=== PATIENT | male | born 1995 | race Caucasian/White ===

== ENCOUNTER 2022-11-18 03:46 | Emergency (ER) | payer SELFPAY ==
[2022-11-18] MEDS ORDERED: ONDANSETRON 4 MG/2 ML VIAL IVP STA (04:20)
[2022-11-18] MEDS ORDERED: fentaNYL 100 MCG/2 ML VIAL IVP PRN (04:20)
[2022-11-18] MEDS ORDERED: SODIUM CHLORIDE 0.9% 1,000 ML IV STA (04:20)
[2022-11-18 04:30] LABS: BASOPHILS # (AUTO) 0.1 10^3/uL (0.0-0.1); BASOPHILS % (AUTO) 0.8 %; EOSINOPHILS # (AUTO) 0.3 10^3/uL (0.0-0.7); HCT - HEMATOCRIT 46.9 % (42.0-52.0); HGB - HEMOGLOBIN 15.5 g/dL (14.0-18.0); LYMPHOCYTES # (AUTO) 4.1 10^3/uL (1.5-3.5); MEAN CORPUSCULAR VOLUME 87.7 fL (80.0-94.0); MEAN PLATELET VOLUME 9.7 fL (7.4-11.4); MONOCYTES # (AUTO) 0.9 10^3/uL (0.0-1.0); MONOCYTES % (AUTO) 7.1 %; NEUTROPHILS % (AUTO) 56.7 %; PLT - PLATELET COUNT 334 10^3/uL (130-450); RED BLOOD COUNT 5.35 10^6/uL (4.70-6.10); WHITE BLOOD COUNT 12.3 x10^3/uL (4.8-10.8)
[2022-11-18 04:42] LABS: ALBUMIN 4.8 g/dL (3.2-5.5); ALBUMIN/GLOBULIN RATIO 1.7 (1.0-2.2); BILIRUBIN,TOTAL 0.5 mg/dL (0.2-1.0); CALCIUM 9.1 mg/dL (8.5-10.3); CREATININE 0.8 mg/dL (0.6-1.2); POTASSIUM 3.8 mmol/L (3.5-5.0); TOTAL PROTEIN 7.7 g/dL (6.7-8.2)
--- NOTE | 2022-11-18 04:46 | ED Physician Documentation ---
History of Present Illness - Stated complaint Stated Complaint: ABD/BACK PX - Chief complaint Chief Complaint: Neuro - Additonal information Additional information: Patient is 26-year-old transgender female (biologic sex male) presenting to the emergency department with right and left flank pain. Symptoms began acutely earlier this evening. Associated with 1 episode nonbloody nonbilious vomiting. Patient also reports multiple partial complex seizures. Reports a history of seizure disorder. Does not currently take medications. Reports was on Lamictal and multiple other medications but they were inefficient.[facility] manages symptoms with marijuana. [facility] does not currently have primary care or a local area neurologist reporting that they recently moved to our state from [place]. Denies fever, chills, chest pain, diarrhea or constipation. Review of Systems Constitutional: denies: Fever Eyes: denies: Loss of vision Ears: denies: Loss of hearing Nose: denies: Rhinorrhea / runny nose Throat: denies: Dental pain / toothache Cardiac: denies: Chest pain / pressure Respiratory: denies: Dyspnea GI: reports: Abdominal Pain, Nausea, Vomiting. denies: Constipation, Diarrhea : denies: Dysuria Skin: denies: Rash Musculoskeletal: denies: Neck pain Neurologic: reports: Seizure PD PAST MEDICAL HISTORY - Past Medical History Past Medical History: Yes Neuro: Seizure disorder Other Past Medical History: Long time hx of Partial Complex SZ; Smokes medical marijuana - Past Surgical History Past Surgical History: Yes General: Appendectomy, Hiatal hernia repair HEENT: Tonsil/Adenoidectomy - Present Medications Home Medications: Ambulatory Orders Medication Instructions Recorded Confirmed No Known Home Medications 11/18/22 11/18/22 - Allergies Allergies/Adverse Reactions: Allergies Allergy/AdvReac Type Severity Reaction Status Date / Time acetaminophen [From Lortab] Allergy Respiratory Verified 11/18/22 04:08 cephapirin [From Cefadyl] Allergy Respiratory Verified 11/18/22 04:10 hydrocodone [From Lortab] Allergy Respiratory Verified 11/18/22 04:08 iodine Allergy Unknown Verified 11/18/22 04:11 Penicillins Allergy Anaphylaxis Verified 11/18/22 04:09 - Social History Does the pt smoke?: Yes Smoking Status: Current every day smoker Does the pt drink ETOH?: Yes ETOH Use: Liquor Does the pt have substance abuse?: No - Immunizations Immunizations are current?: Yes - POLST Patient has POLST: No PD ED PE NORMAL - Vitals Vital signs reviewed: Yes (Within normal limits) - General General: Alert and oriented X 3, Well developed/nourished, Other (Patient appears uncomfortable) - HEENT HEENT: Atraumatic, PERRL, EOMI, Ears normal, Moist mucous membranes, Pharynx benign, Dentition benign - Neck Neck: Supple, no meningeal sign, No bony TTP, No adenopathy, Thyroid normal, No JVD, No bruit - Cardiac Cardiac: RRR, No murmur, No gallop - Respiratory Respiratory: No respiratory distress - Abdomen Abdomen: Normal bowel sounds - Male Male : Deferred - Rectal Rectal: Deferred - Derm Derm: Normal color - Extremities Extremities: No deformity - Neuro Neuro: Alert and oriented X 3, command and control systems integrator 2-12 intact, No motor deficit, Normal speech Results - Vitals Vitals: Vital Signs - 24 hr 11/18/22 11/18/22 04:00 04:29 Temperature 36.9 C Heart Rate 87 76 Respiratory 16 12 Rate Blood Pressure 127/67 131/75 H O2 Saturation 98 98 Oxygen O2 Source Room air - Labs Labs: Laboratory Tests 11/18/22 11/18/22 11/18/22 04:25 04:25 05:25 WBC 12.3 H RBC 5.35 Hgb 15.5 Hct 46.9 MCV 87.7 MCH 29.0 MCHC 33.0 RDW 13.0 Plt Count 334 MPV 9.7 Neut # (Auto) 7.0 H Lymph # (Auto) 4.1 H [place] # (Auto) 0.9 Eos # (Auto) 0.3 Baso # (Auto) 0.1 Absolute Nucleated RBC 0.00 Nucleated RBC % 0.0 Sodium 138 Potassium 3.8 Chloride 100 L Carbon Dioxide 26 Anion Gap 12.0 BUN 6 Creatinine 0.8 Estimated GFR (MDRD) 117 Glucose 106 H Calcium 9.1 Total Bilirubin 0.5 AST 16 ALT 17 Alkaline Phosphatase 66 Total Protein 7.7 Albumin 4.8 Globulin 2.9 Albumin/Globulin Ratio 1.7 Lipase 38 Urine Color YELLOW Urine Clarity CLEAR Urine pH 7.0 Ur Specific [place] 1.010 Urine Protein NEGATIVE Urine Glucose (UA) NEGATIVE Urine Ketones NEGATIVE Urine Occult Blood NEGATIVE Urine Nitrite NEGATIVE Urine Bilirubin NEGATIVE Urine Urobilinogen 0.2 (NORMAL) Ur Leukocyte Esterase NEGATIVE Ur Microscopic Review NOT INDICATED Urine Culture Comments NOT INDICATED PD Medical Decision Making - ED course Complexity details: reviewed results, re-evaluated patient, considered differential, d/w patient ED course: Patient 26-year-old transgender female (biologic sex male) presenting to the emergency department with right-sided flank and abdominal pain with right upper quadrant abdominal pain with associated nausea vomiting. Additionally he reported multiple breakthrough partial complex seizures earlier today. He states that she does not regularly take medication for this as she has tried multiple medications in the past and they have been ineffective. She primarily manages her symptoms with marijuana. Does not have primary care in the area. Afebrile, hematin stable on arrival to the emergency department. IV access was established on arrival. Patient offered medication for pain control which was declined. Given ondansetron and IV hydration. Comprehensive labs demonstrate mild leukocytosis. No significant electrolyte abnormality, renal insufficiency, hepatic dysfunction or elevation in bilirubin appreciated. CT abdomen pelvis shows cholelithiasis without clear indications cholecystitis. CT head nonacute. On reevaluation patient found to be resting comfortably. Has some persistent right upper quadrant abdominal pain. Was offered boarding in the emergency department for ultrasonography in the a.m. Discussed the possibility of cholelithiasis, biliary colic, cholecystitis, cholangitis or other potential causes for her symptoms. She verbalized understanding of these things but reiterated that she feels better and at this time would like to head home with her partner. She does intend to follow-up with primary care. Although she is not currently established with primary care I will provide her with contact information for local area medical professional. She will be provided medication for symptomatic management and given explicit instructions to return to the emergency department immediately for recurrent sy mptoms.
[2022-11-18 05:41] LABS: CLARITY,URINE CLEAR (CLEAR)
[2022-11-18 05:42] LABS: BILIRUBIN,URINE NEGATIVE (NEGATIVE); GLUCOSE, URINE (UA) NEGATIVE (NEGATIVE); KETONES,URINE (UA) NEGATIVE (NEGATIVE); LEUKOCYTE ESTERASE, URINE NEGATIVE (NEGATIVE); NITRITE,URINE NEGATIVE (NEGATIVE); OCCULT BLOOD,URINE NEGATIVE (NEGATIVE); PROTEIN,URINE NEGATIVE (NEGATIVE); UROBILINOGEN,URINE 0.2 (NORMAL) E.U./dL (NORMAL)
[2022-11-18 06:07] VITALS: BP 113/69
--- NOTE | 2022-11-18 08:12 | CT Report ---
PROCEDURE: HEAD WO INDICATIONS: Seizure TECHNIQUE: Noncontrast 4.5 mm thick angled axial sections acquired from the foramen magnum to the vertex. For r adiation dose reduction, the following was used: automated exposure control, adjustment of mA and/or kV according to patient size. COMPARISON: None. FINDINGS: Image quality: Excellent. CSF spaces: Basal cisterns are patent. No extra-axial fluid collections. Ventricles are normal in size and shape. Brain: No midline shift. No intracranial masses or hemorrhage. [place]-white matter interface is norm al. Skull and face: Calvarium and visualized facial bones are intact, without suspicious lesions. Sinuses: Visualized sinuses and mastoids are clear. IMPRESSION: No acute intracranial pathology, no mass or mass effect. Findings are concordant with preliminary interpretation provided by [facility]. Reviewed by: Wilfredo Andres MD on 11/18/2022 8:11 AM PDT Approved by: Wilfredo Andres MD on 11/18/2022 8:11 AM PDT Station ID: [id number]
--- NOTE | 2022-11-18 08:22 | CT Report ---
PROCEDURE: ABDOMEN/PELVIS WO INDICATIONS: left flank pain TECHNIQUE: Noncontrast 5 mm thick sections acquired from the diaphragms to the symphysis. 5 mm coronal and sagi ttal reformats were then performed. For radiation dose reduction, the following was used: automated exposure control, adjustment of mA and/or kV according to patient size. COMPARISON: None. FINDINGS: Image quality: Excellent. Lung bases and heart: Unremarkable. Liver: No solid mass. Gallbladder and biliary tree: Cholelithiasis. No evidence for acute inflammatory changes. No biliary ductal dilatation. Spleen: No splenomegaly. Pancreas: No pancreatic ductal dilation. Adrenals: No adrenal nodule. Kidneys and ureters: No hydronephrosis. No renal cystic lesion which requires follow up. No solid mas s. Bowel and peritoneum: No bowel distension. No pathologic free fluid. Status post appendectomy. Lymph nodes: No central or retroperitoneal adenopathy. Vessels: No infrarenal aortic aneurysm. PELVIS Reproductive organs: Unremarkable. Bladder: No abnormal wall thickening, accounting for underdistension. Pelvic lymph nodes: No pelvic adenopathy by size criteria. Bones: No aggressive osseous abnormality. Other: No significant ventral or inguinal hernia. IMPRESSION: CT abdomen and pelvis without acute abnormalities. Cholelithiasis without CT evidence for acute cholecystitis. Status post appendectomy. Findings are concordant with preliminary interpretation provided by [facility]. Reviewed by: Wilfredo Andres MD on 11/18/2022 8:21 AM PDT Approved by: Wilfredo Andres MD on 11/18/2022 8:21 AM PDT Station ID: [id number]
== END 2022-11-18 06:07 | disposition home or self-care (01) ==
LOC: ED 03:46
DX: R10.11 Right upper quadrant pain (principal); R11.2 Nausea with vomiting, unspecified; F17.200 Nicotine dependence, unspecified, uncomplicated
CPT/HCPCS: 36415; 80053; 81001; 81003; 83690; 85025; 87086; 96361; 96374; 99284

== ENCOUNTER 2023-02-25 13:04 | Emergency (ER) | payer SELFPAY ==
[2023-02-25] MEDS ORDERED: SODIUM CHLORIDE 0.9% 1,000 ML IV STA (13:17)
[2023-02-25] MEDS ORDERED: ONDANSETRON 4 MG/2 ML VIAL IVP STA (13:17)
--- NOTE | 2023-02-25 13:27 | ED Physician Documentation ---
History of Present Illness - Stated complaint Stated Complaint: ABD PX - Chief complaint Chief Complaint: Abd Pain - Additonal information Additional information: 27-year-old male presents emergency department for evaluation of abdominal pain. Reports he was having left-sided flank and lower abdominal pain for about a week but this morning he began having focal pain in his left lower back with associated dysuria. Does feel like he empties his bladder. No obvious hematuria. Some nausea and vomiting. Past surgical history most significant for previous appendectomy with associated hernia requiring mesh graft repair. Review of Systems Constitutional: denies: Fever Respiratory: reports: Reviewed and negative GI: reports: Abdominal Pain, Nausea, Vomiting : reports: Dysuria Skin: reports: Reviewed and negative Musculoskeletal: reports: Back pain Neurologic: reports: Reviewed and negative PD PAST MEDICAL HISTORY - Past Medical History Neuro: Seizure disorder - Past Surgical History Past Surgical History: Yes General: Appendectomy, Hiatal hernia repair HEENT: Tonsil/Adenoidectomy - Present Medications Home Medications: Ambulatory Orders Medication Instructions Recorded Confirmed Ketorolac [Toradol] 10 mg PO Q6H #12 tablet 11/18/22 Ondansetron Odt [Zofran] 4 mg TL Q6H PRN #10 tablet 11/18/22 Ondansetron Odt [Zofran] 4 mg TL Q6H PRN #10 tablet 02/25/23 - Allergies Allergies/Adverse Reactions: Allergies Allergy/AdvReac Type Severity Reaction Status Date / Time acetaminophen [From Lortab] Allergy Respiratory Verified 11/18/22 04:08 cephapirin [From Cefadyl] Allergy Respiratory Verified 11/18/22 04:10 hydrocodone [From Lortab] Allergy Respiratory Verified 11/18/22 04:08 iodine Allergy Unknown Verified 11/18/22 04:11 NSAIDS (Non-Steroidal Allergy Unknown Verified 02/25/23 15:36 Anti-Inflamma Penicillins Allergy Anaphylaxis Verified 11/18/22 04:09 - Social History Does the pt smoke?: Yes Smoking Status: Current every day smoker Does the pt drink ETOH?: Yes Does the pt have substance abuse?: No - Immunizations Immunizations are current?: Yes - POLST Patient has POLST: No PD ED PE NORMAL - General General: Alert and oriented X 3, Well developed/nourished. No: No acute distress (Appears uncomfortable and in pain) - HEENT HEENT: PERRL - Cardiac Cardiac: RRR, No murmur - Respiratory Respiratory: No respiratory distress, Clear bilaterally - Abdomen Abdomen: Normal bowel sounds, Soft, Non distended, Other (Will healed surgical incisions of the lower abdomen). No: Non tender (Tenderness elicited with palpation along the left flank, CVA region and left lower quadrant. No guarding or rebound.) - Back Back: No CVA TTP - Derm Derm: Normal color, Warm and dry, No rash - Extremities Extremities: No deformity - Neuro Neuro: Alert and oriented X 3 Eye Opening: Spontaneous Motor: Obeys Commands Verbal: Oriented GCS Score: 15 Results - Vitals Vitals: Vital Signs - 24 hr 02/25/23 13:08 Temperature 37.2 C Heart Rate 80 Respiratory 18 Rate Blood Pressure 116/70 O2 Saturation 97 Oxygen O2 Source Room air - Labs Labs: Laboratory Tests 02/25/23 02/25/23 02/25/23 13:20 13:28 13:28 WBC 12.3 H RBC 5.20 Hgb 15.4 Hct 45.9 MCV 88.3 MCH 29.6 MCHC 33.6 RDW 12.6 Plt Count 296 MPV 9.6 Neut # (Auto) 7.6 H Lymph # (Auto) 3.6 H [place] # (Auto) 0.8 Eos # (Auto) 0.2 Baso # (Auto) 0.1 Absolute Nucleated RBC 0.00 Nucleated RBC % 0.0 Sodium 138 Potassium 4.1 Chloride 106 Carbon Dioxide 28 Anion Gap 4.0 L BUN 9 Creatinine 0.9 Estimated GFR (MDRD) 101 Glucose 98 Calcium 9.8 Total Bilirubin 0.3 AST 12 ALT 8 L Alkaline Phosphatase 65 Total Protein 7.1 Albumin 4.9 Globulin 2.2 Albumin/Globulin Ratio 2.2 Lipase 127 H Urine Color YELLOW Urine Clarity CLEAR Urine pH 7.5 Ur Specific [place] 1.015 Urine Protein NEGATIVE Urine Glucose (UA) NEGATIVE Urine Ketones NEGATIVE Urine Occult Blood NEGATIVE Urine Nitrite NEGATIVE Urine Bilirubin NEGATIVE Urine Urobilinogen 0.2 (NORMAL) Ur Leukocyte Esterase NEGATIVE Ur Microscopic Review NOT INDICATED Urine Culture Comments NOT INDICATED - Rads (name of study) CT abd wo Relevant Findings:: Final report received (No acute CT findings in the abdomen and pelvis. No renal calculi or hydronephrosis. No diverticulosis. Cholelithiasis without evidence of acute cholecystitis.) PD Medical Decision Making - ED course Complexity details: reviewed results, re-evaluated patient, considered differential, d/w patient ED course: 27-year-old male presents to the emergency department for evaluation of 1 week left lower quadrant abdominal pain followed by acute left low back pain and dysuria this morning. No fevers but some vomiting. Past surgical history most significant for previous appendectomy resulting in abdominal hernia status post mesh repair. Presentation to the emergency department he is alert to though appears uncomfortable and holding his left lower quadrant of the abdomen. His vital signs here in the emergency department were essentially normal for age without fever, tachycardia or hypotension. On exam there was some tenderness elicited with palpation of the left low back and lower quadrant of the abdomen but no guarding or rebound. Nonperitoneal. I did obtain CBC, electrolytes and urinalysis. Per my interpretation mild leukocytosis white count of 12.3 thousand. Hemoglobin was normal. Electrolytes were without worrisome derangement though his lipase was mildly elevated at 127. Urine was negative for signs of infection or hematuria. Subsequently CT of the abdomen was completed without contrast due to the patient's allergy profile. CT showed no acute findings in the abdomen pelvis no renal calculi or diverticulosis. There was findings of cholelithiasis without evidence of acute cholecystitis. Reevaluated the patient and he had reported that his pain had improved after receiving the Zofran. He had no pain in the upper abdomen. I do not feel that the lipase is clinically significant given the lack of pain there and absence of CT imaging findings. At this time patient is stable to discharge home. He is attempting to establish with a primary care doctor. He states due to multiple allergies he is really only able to take cannabis for pain control. I did briefly discussed with him the possibility of cannabis hyperemesis though he feels that he is not vomiting so much as he is having pain in the lower abdomen. Discharged home in stable condition usual emergent return precautions discussed Departure - Departure Disposition: 01 Home, Self Care Clinical Impression: LLQ abdominal pain, Elevated lipase Condition: Stable Record reviewed to determine appropriate education?: Yes Prescriptions: Ondansetron Odt [Zofran] 4 mg TL Q6H PRN #10 tablet PRN Reason: Nausea / Vomiting Comments: You are seen today in the emergency department because for about a week you have had pain in the left lower quadrant of your abdomen and this morning you had pain in your low back. He also reported pain with urination. Your labs today were all essentially normal. However your lipase, marker of pancreatic inflammation was mildly elevated but not markedly so. Your urine showed no signs of infection or blood. Your vital signs have been normal in the ER. A CT of the abdomen showed no worrisome findings. You do have some gallstones but no evidence of gallbladder inflammation. At this time the cause of your pain is not clear. I have sent a prescription of Zofran to your pharmacy. I would encourage you to follow closely with a primary care doctor. Over the next 24 to 48 hours clear liquids would be advised followed by bananas, rice then applesauce and toast. Return to the ER for new or worsening symptoms, fevers, black or bloody stools Forms: PCP List
[2023-02-25 13:34] LABS: BASOPHILS # (AUTO) 0.1 10^3/uL (0.0-0.1); BASOPHILS % (AUTO) 0.8 %; EOSINOPHILS # (AUTO) 0.2 10^3/uL (0.0-0.7); EOSINOPHILS % (AUTO) 1.4 %; HCT - HEMATOCRIT 45.9 % (42.0-52.0); HGB - HEMOGLOBIN 15.4 g/dL (14.0-18.0); LYMPHOCYTES # (AUTO) 3.6 10^3/uL (1.5-3.5); LYMPHOCYTES % (AUTO) 29.2 %; MEAN CORPUSCULAR HEMOGLOBIN 29.6 pg (27.0-31.0); MEAN CORPUSCULAR HGB CONC 33.6 g/dL (32.0-36.0); MEAN CORPUSCULAR VOLUME 88.3 fL (80.0-94.0); MEAN PLATELET VOLUME 9.6 fL (7.4-11.4); MONOCYTES # (AUTO) 0.8 10^3/uL (0.0-1.0); MONOCYTES % (AUTO) 6.4 %; NEUTROPHILS # (AUTO) 7.6 10^3/uL (1.5-6.6); NEUTROPHILS % (AUTO) 61.9 %; PLT - PLATELET COUNT 296 10^3/uL (130-450); RED CELL DISTRIBUTION WIDTH 12.6 % (12.0-15.0); WHITE BLOOD COUNT 12.3 x10^3/uL (4.8-10.8)
[2023-02-25 13:36] LABS: BILIRUBIN,URINE NEGATIVE (NEGATIVE); GLUCOSE, URINE (UA) NEGATIVE (NEGATIVE); KETONES,URINE (UA) NEGATIVE (NEGATIVE); LEUKOCYTE ESTERASE, URINE NEGATIVE (NEGATIVE); NITRITE,URINE NEGATIVE (NEGATIVE); OCCULT BLOOD,URINE NEGATIVE (NEGATIVE); PH,URINE 7.5 PH (5.0-7.5); PROTEIN,URINE NEGATIVE (NEGATIVE); UROBILINOGEN,URINE 0.2 (NORMAL) E.U./dL (NORMAL)
[2023-02-25 13:38] LABS: CLARITY,URINE CLEAR (CLEAR)
[2023-02-25 13:47] LABS: ALBUMIN 4.9 g/dL (3.2-5.5); ALBUMIN/GLOBULIN RATIO 2.2 (1.0-2.2); BILIRUBIN,TOTAL 0.3 mg/dL (0.2-1.0); CALCIUM 9.8 mg/dL (8.5-10.3); CREATININE 0.9 mg/dL (0.6-1.3); POTASSIUM 4.1 mmol/L (3.5-4.5); TOTAL PROTEIN 7.1 g/dL (6.4-8.9)
--- NOTE | 2023-02-25 15:25 | CT Report ---
PROCEDURE: CT of abdomen and pelvis without contrast INDICATIONS: Left flank/abd pain TECHNIQUE: A CT scan of the abdomen and pelvis was performed without the use of intravenous contrast. Images we re recorded and evaluated at appropriate window settings. Reformats: coronal and sagittal. For radiat ion dose reduction, the following was used: automated exposure control, adjustment of mA and/or kV ac cording to patient size. COMPARISON: None. FINDINGS: Image quality: Excellent. Lung bases and heart: Unremarkable. Liver: No solid mass. Gallbladder and biliary tree: Multiple calculi noted in the lumen of the gallbladder without perichol ecystic inflammatory change Spleen: No splenomegaly. Pancreas: No pancreatic ductal dilation. Adrenals: No adrenal nodule. Kidneys and ureters: No hydronephrosis. No renal cystic lesion which requires follow up. No solid mas s. Bowel and peritoneum: No bowel distension. No pathologic free fluid. Appendectomy. Lymph nodes: No central or retroperitoneal adenopathy. Vessels: No infrarenal aortic aneurysm. PELVIS Reproductive organs: Unremarkable. Bladder: No wall thickness, accounting for underdistention. Pelvic lymph nodes: No pelvic adenopathy by size criteria. Bones: No aggressive osseous abnormality. Other: No significant ventral or inguinal hernia. IMPRESSION: No acute CT findings in the abdomen and pelvis. No renal calculi or hydronephrosis. No diverticulosis . Cholelithiasis without CT evidence of acute cholecystitis Reviewed by: Emeterio Cunningham MD on 02/25/2023 2:23 PM EVAN Approved by: Emeterio Cunningham MD on 02/25/2023 2:23 PM AKDT Station ID: [id number]
[2023-02-25 15:51] VITALS: BP 131/81; O2SAT 96
== END 2023-02-25 15:49 | disposition home or self-care (01) ==
LOC: ED 13:04
DX: R10.32 Left lower quadrant pain (principal); R74.8 Abnormal levels of other serum enzymes; R30.0 Dysuria; K80.20 Calculus of gallbladder without cholecystitis without obstruction; F17.200 Nicotine dependence, unspecified, uncomplicated
CPT/HCPCS: 36415; 80053; 81001; 81003; 83690; 85025; 87086; 96374; 99283